=== PATIENT | male | born 1985 | race American Indian/Alaskan Native ===

== ENCOUNTER 2021-10-27 20:53 | Emergency (ER) | payer SELFPAY ==
[2021-10-27] MEDS ORDERED: ONDANSETRON 4 MG/2 ML INJ IV ONE (21:07)
[2021-10-27] MEDS ORDERED: SODIUM CHLORIDE 0.9% 1000 ML 1,000 ML IV ONE (21:07)
[2021-10-27] MEDS ORDERED: MORPHINE 4 MG/1 ML INJ IV ONE (21:07)
[2021-10-27] MEDS ORDERED: TETANUS,DIPHTHERIA TOXOID ADULT 0.5 ML INJ IM ONE (21:10)
[2021-10-27 21:28] LABS: INR 0.91 (0.87-1.13)
[2021-10-27 21:35] LABS: Alanine Aminotransferase 19 units/L (7-56); Albumin 5.2 g/dL (3.9-5); BUN/Creatinine Ratio 13; Blood Urea Nitrogen 10 mg/dL (9-20); Calcium 9.3 mg/dL (8.4-10.2); Hemolysis Index 4
[2021-10-27 21:38] LABS: Basophils # (Auto) 0.1 K/mm3 (0.0-0.1); Basophils % (Auto) 0.7 % (0.0-1.8); Eosinophils % (Auto) 0.2 % (0.0-4.3); Hematocrit 44.9 % (35.5-45.6); Hemoglobin 15.4 gm/dl (11.8-15.2); Lymphocytes # (Auto) 2.2 K/mm3 (1.2-5.4); Lymphocytes % (Auto) 26.7 % (13.4-35.0); Mean Corpuscular HGB Conc 34 % (32-34); Mean Corpuscular Volume 83 fl (84-94); Monocytes # (Auto) 0.5 K/mm3 (0.0-0.8); Monocytes % (Auto) 6.5 % (0.0-7.3); Red Blood Count 5.45 M/mm3 (3.65-5.03); Red Cell Distribution Width 15.2 % (13.2-15.2)
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
[2021-10-27 21:44] LABS: Platelet Count 251 K/mm3 (140-440)
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
[2021-10-27 22:40] VITALS: BP 98/66
--- NOTE | 2021-10-28 18:02 | Electrocardiograph Report ---
[facility] Test Date: 2021-10-27 Test Time: 21:10:36 Pat Name: DEVI FREIRE Department: Room: Gender: M [employer] Reconciliator: ASHLEY PIKE : 1985 Requested By: MARGUERITE BLANC Order Number: [id number] Reading MD: Jameson Fish Measurements Intervals [place] Rate: 72 P: 60 SC: 123 QRS: 0 QRSD: 86 T: 54 QT: 372 QTc: 405 Interpretive Statements Sinus rhythm Frequent isolated PACs No previous ECG available for comparison Electronically Signed On 10-28-2021 18:02:31 EDT by Jameson Fish
== END 2021-10-27 23:39 | disposition home or self-care (01) ==
LOC: ED 20:53
DX: S20.312A Abrasion of left front wall of thorax, initial encounter (principal); M54.6 Pain in thoracic spine; M25.511 Pain in right shoulder; R51.9 Headache, unspecified; F10.10 Alcohol abuse, uncomplicated; V87.7XXA Person injured in collision between other specified motor vehicles (traffic), initial encounter; Y93.89 Activity, other specified; Y92.488 Other paved roadways as the place of occurrence of the external cause; Y99.8 Other external cause status
CPT/HCPCS: 36415; 70450; 71260; 72125; 72128; 72131; 73030; 74177; 80053; 82550; 84484; 85025; 85610; 90471; 90714; 93005; 96361; 96374; 96375; 99284; J0690; J2270; J2405; J7030; Q9967; 80320; G0480